=== PATIENT | male | born 1955 | race Caucasian/White ===

== ENCOUNTER → 2021-04-09 | Day surgery (SDC) | payer MEDICARE, OTHER ==
[~2021-04-09] MED LIST: CRESTOR40 MG PO; IPRATRPIUM/ALBUTEROL 0.5/2.5MG 3 ML NEBU. NEB PRN; IV RINGERS SOLUTION,LACTATED 1,000 ML IV SCH; LIDOCAINE 2% PF 5 ML VIAL. ONE; LISI40TA6 PO; METF-638 PO; MIDAZOLAM HCL PF 2 MG/2 ML VIAL. IV ONE; ONDANSETRON PF 4 MG/2 ML VIAL. IV PRN; PROPOFOL 10,000 MCG/ML (20ML) VIAL IV ONE
[2021-04-09 13:07] VITALS: BP 130/72
--- NOTE | 2021-04-13 18:11 | PATHOLOGY ---
[facility] Accession Number: [id number] . 01 Material submitted: . sigmoid colon - SIGMOID POLYPS . 01 Clinical history: . SCREENING COLONOSCOPY . 02 Diagnosis: Colon biopsies, sigmoid polyps: - Tubular adenomas. ([facility] 04/13/2021) S 04/13/2021 1531 Local . 02 Comment: There is no high grade dysplasia or evidence of malignancy. ([facility] 04/13/2021) . 02 Electronically signed: . Viraj Abreu MD, Pathologist NPI- [id number] . 01 Gross description: . Received in formalin labeled "Arcelia, Edward, sigmoid polyps" are 3 gomez-brown soft tissue fragments. The first measures 1.3 x 1.0 x 1.0 cm. This fragment margin is inked, trisected and submitted entirely in A1. The second fragment measures 1.4 x 0.7 x 0.6 cm. The fragment margin is inked, bisected and submitted entirely in A2. The final fragment measures 0.6 x 0.5 x 0.5 cm. The margin is inked, bisected and submitted entirely in A3. (SARAH; 04/12/2021) SARAH/SARAH 04/13/2021 1528 Local . 02 Pathologist provided ICD-10: D12.5 . 02 CPT . 393355 Specimen Comment: A courtesy copy of this report has been sent to [phone] Specimen Comment: Report sent to / DR DOBSON Performed at: 01 [facility] [address], [place], [place] [id number] MD Johnnie Cruz MD Phone: [phone] Performed at: 02 [facility] [address], [place] [id number] MD Viraj Abreu MD Phone: [phone]
== END | disposition home or self-care (01) ==
LOC: SURG 10:32
PROVIDERS: ATTEND Internal Medicine Gastroenterology
DX: Z12.11 Encounter for screening for malignant neoplasm of colon (principal); D12.5 Benign neoplasm of sigmoid colon; K63.89 Other specified diseases of intestine; K57.30 Diverticulosis of large intestine without perforation or abscess without bleeding; K64.8 Other hemorrhoids; E11.9 Type 2 diabetes mellitus without complications; I10 Essential (primary) hypertension; G47.33 Obstructive sleep apnea (adult) (pediatric); E78.00 Pure hypercholesterolemia, unspecified; Z72.89 Other problems related to lifestyle; Z79.899 Other long term (current) drug therapy; Z79.84 Long term (current) use of oral hypoglycemic drugs
CPT/HCPCS: 45381; 45385; 88305; J2001; J2704; J7120